=== PATIENT | female | born 1990 | race Caucasian/White ===

== ENCOUNTER 2021-03-11 19:02 | Emergency (ER) | payer OTHER ==
[~2021-03-11] VITALS: Ht 167.6 cm; Wt 95.3 kg
[~2021-03-11 19:02] MED LIST: ADVIL200 M2 PO; AMITRIPTYLINE H50 M2 PO; ATIVAN2 MG PO; BACTRIM DS TAB1 EACH PO; CIPROFLOXACIN500 M1 PO; HYDROCODON-ACE1 EAC5 PO; MEDROXYPROGESTERONE IM; NICOTINE TRANSD14 M1 TD; NICOTINE TRANSD21 M1 TD; NICOTINE TRANSDE7 MG TD; NORCO 5-325 TA1 EACH PO; PAXIL20 MG PO; PERCOCET 5-3251 EACH PO; PHENERGAN 25 MG25 MG PO; ZOFRAN ODT4 MG PO; ZPAK PO
[2021-03-11] MEDS ORDERED: TESSALON PERLE100 MG PO ×2 (20:43→21:02)
[2021-03-11] MEDS ORDERED: PROAIR HFA8.5 GM INH ×2 (20:43→21:02)
[2021-03-11 21:00] VITALS: BP 131/78
== END 2021-03-11 20:45 | disposition home or self-care (01) ==
LOC: M.ERS 19:02
DX: Z20.822 Contact with and (suspected) exposure to COVID-19 (principal); G43.909 Migraine, unspecified, not intractable, without status migrainosus; F41.9 Anxiety disorder, unspecified; Z88.5 Allergy status to narcotic agent; Z91.040 Latex allergy status; Z79.2 Long term (current) use of antibiotics; Z79.899 Other long term (current) drug therapy